=== PATIENT | female | born 2000 | race Caucasian/White ===

== ENCOUNTER 2021-02-03 08:59 | Emergency (ER) | payer OTHER ==
[2021-02-03 09:52] LABS: BILIRUBIN NEGATIVE (NEGATIVE); BLOOD NEGATIVE Ery/uL (NEGATIVE); CLARITY CLEAR (CLEAR); COLOR YELLOW (YELLOW); GLUCOSE (U) NORMAL (NORMAL); LEUKOCYTES TRACE Leu/uL (NEGATIVE); NITRITE NEGATIVE (NEGATIVE); PROTEIN NEGATIVE (NEGATIVE); SPECIFIC GRAVITY >=1.030 (1.001-1.030); UROBILINOGEN 0.2 mg/dL (0.2-1.0); pH 5.5 (5.0-9.0)
[2021-02-03 10:22] LABS: BASOPHIL 0.4 % (0-2); EOSINOPHIL 1.5 % (0-5); HCT 36.6 % (37.0-47.0); HGB 12.2 g/dl (12.5-16.0); MCH 30.1 pg (25.0-31.0); MCHC 33.3 g/dL (32.0-36.0); MCV 90.4 fL (78.0-100.0); MONOCYTE 8.8 % (0-12); MPV 8.8 fL (6.0-9.5); NEUTROPHIL 47.9 % (41-80); NRBC 0; PLT 215 K/uL (150-400); RBC 4.05 M/uL (4.20-5.40); RDW 11.6 % (11.5-14.0); WBC 4.6 K/uL (4.0-10.5)
[2021-02-03 10:23] LABS: BACTERIA 3+; SQUAMOUS EPITHELIAL CELLS 20-50
[2021-02-03 10:34] LABS: LYMPHOCYTE 41.2 % (15-48)
[2021-02-03] MEDS ORDERED: KETOROLAC TROME10 MG PO (11:20)
== END 2021-02-03 11:46 | disposition home or self-care (01) ==
LOC: FER 08:59
PROVIDERS: Emergency Medicine
DX: N83.202 Unspecified ovarian cyst, left side (principal)
CPT/HCPCS: 36415; 76856; 81001; 85025; J1885